=== PATIENT | female | born 1985 | race Caucasian/White ===

== ENCOUNTER 2018-03-19 19:35 | Inpatient (IN) | payer OTHER ==
[2018-03-19] MEDS: DEXTROSE 5%-LR 1,000 ML IV (21:07)
[2018-03-19] MEDS ORDERED: LIDOCAINE 1% (MPF) 30 ML INJ INJ (21:30)
[2018-03-19] MEDS ORDERED: CARBOPROST 250 MCG INJ IM (21:30)
[2018-03-19] MEDS ORDERED: OXYTOCIN 30 UNITS/LR 500 ML IV ×2 (21:30)
[2018-03-19] MEDS ORDERED: IBUPROFEN 600 MG TAB PO (21:30)
[2018-03-19] MEDS ORDERED: MISOPROSTOL 200 MCG TAB PR (21:30)
[2018-03-19] MEDS ORDERED: METHYLERGONOVINE 0.2 MG INJ IM (21:30)
[2018-03-19] MEDS: AMPICILLIN 2 GM/NS (PMX) 100 ML IV (22:03)
[2018-03-19] MEDS: LACTATED RINGER'S 1,000 ML IV* (22:04)
[2018-03-19 22:09] LABS: ADD MAN DIFF? NO
[2018-03-19 22:13] LABS: BASOPHILS % 0.2 % (0.0-2.0); EOSINOPHILS # 0.1 10^3/ul (0.0-0.5); HEMATOCRIT 41.6 % (37.0-47.0); HEMOGLOBIN 13.5 g/dl (12.0-16.0); LYMPHOCYTES # 1.9 10^3/ul (0.8-2.9); LYMPHOCYTES % 16.2 % (15.0-51.0); MEAN CORPUSCULAR HGB CONC 32.5 g/dl (32.0-37.0); MEAN CORPUSCULAR VOLUME 86.3 fl (82.0-101.0); MEAN PLATELET VOLUME 11.9 fl (7.4-10.4); MONOCYTE # 0.9 10^3/ul (0.3-0.9); MONOCYTES % 7.8 % (0.0-11.0); NEUTROPHIL # 8.7 10^3/ul (1.6-7.5); NEUTROPHILS % 74.1 % (39.0-77.0); PLATELET COUNT 223 10^3/UL (140-415); RED BLOOD COUNT 4.82 10^6/ul (4.20-5.40); RED CELL DISTRIBUTION WIDTH 14.5 % (11.5-14.5)
[2018-03-19 22:13] LABS: WHITE BLOOD COUNT 11.7 10^3/ul (4.8-10.8)
[2018-03-19 22:34] LABS: INR 0.91; PROTIME 12.3 Sec (11.9-14.9)
[2018-03-19 22:35] LABS: PARTIAL THROMBOPLASTIN TIME 27.9 Sec (23.0-35.0)
[2018-03-19 23:03] LABS: HEPATITIS B SURFACE ANTIGEN NEGATIVE (NEGATIVE)
[2018-03-19 23:08] LABS: GLUCOSE 76 mg/dl (70-220)
[2018-03-20] MEDS: ACCU-CHEK XX ×4 (02:00→13:49)
[2018-03-20] MEDS: AMPICILLIN 1 GM/NS (PMX) 50 ML IV ×4 (02:02→13:49)
[2018-03-20] MEDS: LACTATED RINGER'S 1,000 ML IV* ×3 (05:16→21:30)
[2018-03-20] MEDS: OXYTOCIN 30 UNITS/LR 500 ML IV ×2 (06:12→16:48)
[2018-03-20] MEDS: DEXTROSE 5%-LR 1,000 ML IV (10:29)
[2018-03-20] MEDS: BUTORPHANOL 2 MG INJ IV (14:03)
[2018-03-20] MEDS: LACTATED RINGER'S 1,000 ML IV (14:32)
[2018-03-20 15:23] LABS: RAPID PLASMA REAGIN NONREACTIVE (NR)
[2018-03-20] MEDS ORDERED: METHYLERGONOVINE 0.2 MG INJ IM (17:30)
[2018-03-20] MEDS ORDERED: CARBOPROST 250 MCG INJ IM (17:30)
[2018-03-20] MEDS ORDERED: HYDROCODONE/APAP (5/325) TAB PO (17:30)
[2018-03-20] MEDS ORDERED: DIBUCAINE 1% 30 GM OINT PR (17:30)
[2018-03-20] MEDS ORDERED: ACETAMINOPHEN 325 MG TAB PO (17:30)
[2018-03-20] MEDS ORDERED: MISOPROSTOL 200 MCG TAB PR (17:30)
[2018-03-20] MEDS ORDERED: OXYTOCIN 30 UNITS/LR 500 ML IV (17:30)
[2018-03-20] MEDS: WITCH HAZEL/GLYCERIN PAD PR (17:59)
[2018-03-20] MEDS: BENZOCAINE 20% 56 ML SPRAY TOP (17:59)
[2018-03-20] MEDS: LANOLIN 7 GM TUBE TOP (17:59)
[2018-03-20] MEDS: IBUPROFEN 600 MG TAB PO (18:00)
[2018-03-20] MEDS: SENNA/DOCUSATE NA (8.6MG/50MG) TAB PO (21:29)
[2018-03-21] MEDS: IBUPROFEN 600 MG TAB PO ×5 (00:31→23:40)
[2018-03-21] MEDS: LACTATED RINGER'S 1,000 ML IV* ×2 (09:14→17:14)
[2018-03-21 09:24] LABS: ADD MAN DIFF? NO
[2018-03-21 09:28] LABS: WHITE BLOOD COUNT 10.3 10^3/ul (4.8-10.8)
[2018-03-21 09:28] LABS: BASOPHILS % 0.2 % (0.0-2.0); EOSINOPHILS # 0.1 10^3/ul (0.0-0.5); EOSINOPHILS % 0.9 % (0.0-7.0); HEMATOCRIT 33.5 % (37.0-47.0); LYMPHOCYTES # 2.1 10^3/ul (0.8-2.9); MEAN CORPUSCULAR HEMOGLOBIN 28.3 pg (29.0-33.0); MEAN CORPUSCULAR HGB CONC 32.8 g/dl (32.0-37.0); MEAN CORPUSCULAR VOLUME 86.1 fl (82.0-101.0); MEAN PLATELET VOLUME 11.7 fl (7.4-10.4); MONOCYTE # 0.7 10^3/ul (0.3-0.9); MONOCYTES % 6.4 % (0.0-11.0); NEUTROPHIL # 7.4 10^3/ul (1.6-7.5); NEUTROPHILS % 71.7 % (39.0-77.0); PLATELET COUNT 189 10^3/UL (140-415); RED BLOOD COUNT 3.89 10^6/ul (4.20-5.40); RED CELL DISTRIBUTION WIDTH 14.4 % (11.5-14.5)
[2018-03-21] MEDS: SENNA/DOCUSATE NA (8.6MG/50MG) TAB PO ×2 (11:01→21:09)
[2018-03-22] MEDS: IBUPROFEN 600 MG TAB PO ×2 (05:44→12:11)
[2018-03-22] MEDS: SENNA/DOCUSATE NA (8.6MG/50MG) TAB PO (09:00)
[2018-03-22] MEDS: DIPHTH/TET/ACEL PERTUSS (ADULT) 0.5 ML VIAL IM* (09:14)
== END 2018-03-22 16:30 | disposition home or self-care (01) | DRG 807 ==
LOC: PP1 03-20 18:47 → OBT 19:35 → L-D 19:35 → OBT 21:06 → L-D 21:06
PROVIDERS: Obstetrics & Gynecology
PROC: 10E0XZZ Delivery of Products of Conception, External Approach (ICD-10-PCS; principal; 2018-03-20)
PROC: 3E033VJ Introduction of Other Hormone into Peripheral Vein, Percutaneous Approach (ICD-10-PCS; 2018-03-20)
DX: O24.429 Gestational diabetes mellitus in childbirth, unspecified control (principal); Z37.0 Single live birth; Z3A.39 39 weeks gestation of pregnancy
CPT/HCPCS: 82947; 82962; 85025; 85610; 85730; 86592; 86850; 86900; 86901; 87340; 90715